=== PATIENT | male | born 1975 | race Caucasian/White ===

== ENCOUNTER 2016-08-04 10:39 | Emergency (ER) | payer BC ==
[~2016-08-04] VITALS: Ht 175.3 cm; Wt 63.5 kg
[~2016-08-04 10:39] MED LIST: CLIN1CAP6 PO; DOCU1CAP39 PO; ROXI5TAB4 PO
[2016-08-04 10:41] VITALS: BP 133/88; PULSE 97; RESP 18; TEMP 97.9; O2SAT 100
[2016-08-04] MEDS ORDERED: SODIUM CHLOR 0.9% 1000 ML INJ 1,000 ML IV SCH (10:55)
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
[2016-08-04] MEDS ORDERED: ONDANSETRON HCL 4 MG/2 ML VIAL IVP ONE (11:00)
[2016-08-04] MEDS ORDERED: SODIUM CHLORIDE 0.9% FLUSH 5 ML FLUSH IVF PRN (11:00)
[2016-08-04] MEDS ORDERED: MORPHINE SULFATE 4 MG/ML INJ IV PUSH ONE (11:00)
[2016-08-04 11:34] LABS: AUTOMATED NEUTROPHIL # 9.3 TH/MM3 (1.8-7.7); BASOPHIL % 0.3 % (0.0-2.0); EOSINOPHIL # 0.1 TH/MM3 (0-0.4); EOSINOPHIL % 0.5 % (0.0-4.0); HEMATOCRIT 44.8 % (39.0-51.0); HEMO FLAGS DIFF FINAL; LYMPHOCYTE # 2.2 TH/MM3 (1.0-4.8); MEAN CELL VOLUME 90.3 FL (80.0-100.0); MEAN CORPUSCULAR HEMOGLOBIN 31.4 PG (27.0-34.0); MEAN CORPUSCULAR HGB CONC 34.7 % (32.0-36.0); NEUT % 77.2 % (16.0-70.0); PLATELET COUNT 318 TH/MM3 (150-450); RED BLOOD COUNT 4.96 MIL/MM3 (4.50-5.90); WHITE BLOOD COUNT 12.1 TH/MM3 (4.0-11.0)
[2016-08-04 12:02] LABS: BLOOD, URINE NEG (NEG); COMMENT (UR) CULT NOT INDICATED; CULTURE IF INDICATED CULT NOT INDICATED; GLUCOSE,URINE NEG (NEG); KETONE, URINE NEG (NEG); NITRITE,URINE NEG (NEG); URINE COLOR LIGHT-YELLOW (YELLW/STRAW)
[2016-08-04 12:14] LABS: ALT (GPT) 21 U/L (12-78); ANION GAP 7 MEQ/L (5-15); AST (GOT) 9 U/L (15-37); BICARBONATE 26.9 MEQ/L (21.0-32.0); BLOOD UREA NITROGEN 11 MG/DL (7-18); CHLORIDE 104 MEQ/L (98-107); GLOMERULAR FILTRATION RATE 53 ML/MIN (>89); POTASSIUM 3.7 MEQ/L (3.5-5.1); SODIUM (NA) 138 MEQ/L (136-145)
[2016-08-04 12:16] LABS: ALKALINE PHOSPHATASE 78 U/L (45-117); TOTAL BILIRUBIN ADULT 0.3 MG/DL (0.2-1.0)
--- NOTE | 2016-08-04 12:31 | RADRPT ---
EXAM DATE/TIME: 08/04/2016 11:34 [facility] COMPARISON: CT ABDOMEN & PELVIS W/O CONTRAST, November 15, 2015, 12:16. INDICATIONS: Epigastric pain. ORAL CONTRAST: No oral contrast ingested. RADIATION DOSE: 4.59 CTDIvol (mGy) MEDICAL HISTORY: Renal cell carcinoma. SURGICAL HISTORY: Nephrectomy, left. ENCOUNTER: Initial ACUITY: 4 - 6 days PAIN SCALE: 4/10 LOCATION: Epigastric TECHNIQUE: Volumetric scanning of the abdomen and pelvis was performed. Using automated exposure control and ad justment of the mA and/or kV according to patient size, radiation dose was kept as low as reasonably achievable to obtain optimal diagnostic quality images. FINDINGS: The patient is status post left nephrectomy. The right kidney is unremarkable without acute obstruct ion. Evaluation of the solid organs of the abdomen is limited by the lack of intravenous contrast. No bow el obstruction is noted. The appendix is unremarkable. The prostate gland is prominent. The urinary b ladder is distended but demonstrates no focal abnormality. No ascites is noted. Mild scoliosis of the lumbar spine is noted. the visualized lung bases are clear. CONCLUSION: 1. Enlarged prostate. 2. No acute intraabdominal process. 3. Mild scoliosis of the lumbar spine. Dylan Landa MD on August 04, 2016 at 12:07 Board Certified Radiologist. This report was verified electronically.
[2016-08-04] MEDS ORDERED: ZANT150T2 PO (13:22)
[2016-08-04 13:29] VITALS: BP 125/80
== END 2016-08-04 13:30 | disposition home or self-care (01) ==
LOC: NEPA 10:39
DX: R10.13 Epigastric pain (principal); R10.11 Right upper quadrant pain; R11.2 Nausea with vomiting, unspecified
CPT/HCPCS: 74176; 80053; 81001; 83690; 85025; 96360; 99284; J7030

== ENCOUNTER 2016-08-07 13:36 | Emergency (ER) | payer BC ==
[~2016-08-07] VITALS: Ht 175.3 cm; Wt 60.0 kg
[~2016-08-07 13:36] MED LIST changes: -CLIN1CAP6 PO; -DOCU1CAP39 PO; -ROXI5TAB4 PO; +ZANT150T2 PO
[2016-08-07 13:38] VITALS: BP 115/76; PULSE 75; RESP 15; TEMP 97.8; O2SAT 98
[2016-08-07 14:05] VITALS: TEMP 99.4
[2016-08-07] MEDS ORDERED: ZOFR8TAB4 SL (16:34)
[2016-08-07] MEDS ORDERED: IMOD2TAB3 PO (16:34)
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
[2016-08-07] MEDS ORDERED: ONDANSETRON ODT 4 MG TAB PO ONE (16:45)
== END 2016-08-07 16:58 | disposition home or self-care (01) ==
LOC: NEPA 13:36
DX: R11.2 Nausea with vomiting, unspecified (principal)
CPT/HCPCS: 99283

== ENCOUNTER 2016-09-14 12:00 | Emergency (ER) | payer BC ==
[~2016-09-14] VITALS: Ht 175.3 cm; Wt 63.6 kg
[~2016-09-14 12:00] MED LIST changes: +IMOD2TAB3 PO; +ZOFR8TAB4 SL
[2016-09-14 12:01] VITALS: BP 132/92; PULSE 102; RESP 20; TEMP 98.7; O2SAT 97
--- NOTE | 2016-09-14 12:08 | PD ---
Physical Exam Time Seen by Provider: 12:05 Narrative 41 y/o male presents for evaluation of generalized abdominal pain for one month , intermittent. He reports this is his 3rd evaluation for this issue here. associated n/v. VSS. Seen at triage desk. Awaiting bed placement. Data Data Last Documented VS Vital Signs Date Time Temp Pulse Resp B/P Pulse Ox O2 Delivery O2 Flow Rate FiO2 09/14/16 12:01 98.7 102 20 132/92 97 Room Air [facility] Medical Record Reviewed: Yes Supervised Visit with ARELI: Guzman Fu September 14, 2016 12:08
[2016-09-14] MEDS ORDERED: ALUMINUM/MAGNESIUM/SIMETH 30 ML CUP PO ONE (12:30)
[2016-09-14] MEDS ORDERED: SODIUM CHLORIDE 0.9% FLUSH 10 ML FLUSH IV FLUSH PRN (12:30)
[2016-09-14] MEDS ORDERED: SODIUM CHLOR 0.9% 1000 ML INJ 1,000 ML IV SCH (12:30)
[2016-09-14] MEDS ORDERED: MORPHINE SULFATE 4 MG/ML INJ IV PUSH ONE (12:30)
[2016-09-14] MEDS ORDERED: ONDANSETRON HCL 4 MG/2 ML VIAL IVP ONE (12:30)
[2016-09-14] MEDS ORDERED: LIDOCAINE VISCOUS 2% SOLN 15 ML UDC PO ONE (12:30)
[2016-09-14] MEDS ORDERED: NEXI20CA PO (12:34)
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
[2016-09-14 12:40] VITALS: RESP 18; O2SAT 97
[2016-09-14 13:13] LABS: AUTOMATED NEUTROPHIL # 12.7 TH/MM3 (1.8-7.7); BASOPHIL # 0.1 TH/MM3 (0-0.2); BASOPHIL % 0.4 % (0.0-2.0); EOSINOPHIL % 0.2 % (0.0-4.0); HEMATOCRIT 43.5 % (39.0-51.0); HEMO FLAGS DIFF FINAL; LYMPH % 10.2 % (9.0-44.0); LYMPHOCYTE # 1.6 TH/MM3 (1.0-4.8); MEAN CELL VOLUME 88.7 FL (80.0-100.0); MEAN CORPUSCULAR HEMOGLOBIN 30.3 PG (27.0-34.0); MEAN CORPUSCULAR HGB CONC 34.1 % (32.0-36.0); MONO % 6.3 % (0.0-8.0); NEUT % 82.9 % (16.0-70.0); PLATELET COUNT 399 TH/MM3 (150-450); RED BLOOD COUNT 4.91 MIL/MM3 (4.50-5.90); WHITE BLOOD COUNT 15.4 TH/MM3 (4.0-11.0)
[2016-09-14 13:31] LABS: ANION GAP 9 MEQ/L (5-15); AST (GOT) 11 U/L (15-37); BICARBONATE 25.9 MEQ/L (21.0-32.0); BLOOD UREA NITROGEN 10 MG/DL (7-18); CHLORIDE 102 MEQ/L (98-107); GLOMERULAR FILTRATION RATE 63 ML/MIN (>89); POTASSIUM 4.1 MEQ/L (3.5-5.1); SODIUM (NA) 137 MEQ/L (136-145)
[2016-09-14 13:34] LABS: ALKALINE PHOSPHATASE 88 U/L (45-117); ALT (GPT) 16 U/L (12-78); TOTAL BILIRUBIN ADULT 0.4 MG/DL (0.2-1.0)
[2016-09-14 13:51] VITALS: RESP 18
--- NOTE | 2016-09-14 14:20 | RADRPT ---
EXAM DATE/TIME: 09/14/2016 13:24 [facility] COMPARISON: No previous studies available for comparison. INDICATIONS : Right upper quadrant pain. MEDICAL HISTORY : Renal cancer. SURGICAL HISTORY : Nephrectomy, left. ENCOUNTER: Initial ACUITY: 1 day PAIN SCORE: 7/10 LOCATION: Right upper quadrant MEASUREMENTS: LIVER: 15.4 cm length COMMON DUCT: 3 mm RIGHT KIDNEY: 11.6 x 5.3 x 5.0 cm FINDINGS: LIVER: Normal echotexture without focal lesion or ductal dilatation. COMMON DUCT: No intraluminal mass or stone visualized. GALLBLADDER: Contains no stones, demonstrates no wall thickening or pericholecystic fluid. PANCREAS: The visualized portions are within normal limits. RIGHT KIDNEY: No evidence of hydronephrosis, stone, or mass. CONCLUSION: Normal examination. Marc Shah MD on September 14, 2016 at 14:15 Board Certified Radiologist. This report was verified electronically.
== END 2016-09-14 15:08 | disposition home or self-care (01) ==
LOC: NEPD 12:00
DX: R10.13 Epigastric pain (principal); R10.11 Right upper quadrant pain; R19.7 Diarrhea, unspecified; Z90.5 Acquired absence of kidney; Z72.0 Tobacco use
CPT/HCPCS: 76705; 80053; 83605; 83690; 85025; 96361; 96374; 96375; 99284; J2270; J2405; J7030

== ENCOUNTER 2017-04-24 23:00 | Emergency (ER) | payer BC ==
[~2017-04-24 23:00] MED LIST changes: -IMOD2TAB3 PO; +NEXI20CA PO; -ZANT150T2 PO; -ZOFR8TAB4 SL
[2017-04-24 23:02] VITALS: BP 126/76; PULSE 81; RESP 16; TEMP 98.2; O2SAT 99
[2017-04-25] MEDS ORDERED: SODIUM CHLORIDE 0.9% FLUSH 10 ML FLUSH IVF PRN
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
[2017-04-25 00:36] LABS: BACTERIA, URINE RARE /hpf; BLOOD, URINE NEG (NEG); COMMENT (UR) CULT NOT INDICATED; CULTURE IF INDICATED CULT NOT INDICATED; GLUCOSE,URINE NEG (NEG); KETONE, URINE NEG (NEG); NITRITE,URINE NEG (NEG); PH, URINE 6.5 (5.0-8.5); URINE COLOR COLORLESS (YELLW/STRAW)
--- NOTE | 2017-04-25 02:20 | RADRPT ---
EXAM DATE/TIME: 04/25/2017 01:15 [facility] COMPARISON: No previous studies available for comparison. INDICATIONS : Scrotal swelling and pain. MEDICAL HISTORY : Left renal cell carcinoma. SURGICAL HISTORY : Nephrectomy, left. ENCOUNTER: Initial ACUITY: 1 day PAIN SCORE: 3/10 LOCATION: Bilateral scrotum. MEASUREMENTS: RIGHT TESTICLE: 4.9 x 3.4 x 2.1cm LEFT TESTICLE: 4.9 x 3.4 x 2.3cm FINDINGS: There is a large right-sided hydrocele. An epididymal head cyst measuring 4.8 mm is noted. Normal blo od flow to the right testicle. There is a moderate left-sided hydrocele noted. Epididymal head cyst m easuring 3.2 mm is noted. Small left-sided varicocele. Blood flow was noted to the left testicle. The re are no testicular masses. Bilateral testicular appendages are noted. CONCLUSION: Bilateral hydroceles and epididymal head cysts. Everett Elise MD on April 25, 2017 at 2:17 Board Certified Radiologist. This report was verified electronically.
== END 2017-04-25 03:17 | disposition home or self-care (01) ==
LOC: NEPE 23:00
DX: N50.89 Other specified disorders of the male genital organs (principal); F17.200 Nicotine dependence, unspecified, uncomplicated; Z85.528 Personal history of other malignant neoplasm of kidney
CPT/HCPCS: 76870; 81001; 93975; 99284